=== PATIENT | male | born 1995 | race African-American/Black ===

== ENCOUNTER 2017-08-15 08:55 | Emergency (ER) | payer BC ==
[~2017-08-15] VITALS: Ht 180.3 cm; Wt 86.2 kg
[2017-08-15 09:45] LABS: Basophils # (auto) 0 uL; Eosinophils # (auto) 0.1 uL; Lymphocytes # (auto) 1.9 uL; Mean Corpuscular Hemoglobin 26.3 pg (28.0-32.0); Mean Platelet Volume 8.8 fL (6.9-10.8); Red Cell Distribution Width 13.3 % (11.8-14.3)
[2017-08-15 09:47] LABS: Basophils % (auto) 0.6 % (0.0-2.0); Eosinophils % (auto) 1.4 % (0.0-7.0); Hematocrit 42.6 % (41.0-53.0); Hemoglobin 14.2 g/dL (13.5-17.5); Lymphocytes % (auto) 32.7 % (10.0-50.0); Mean Corpuscular Hgb Conc. 33.3 g/dL (32.0-36.0); Mean Corpuscular Volume 78.9 fL (80.0-100.0); Monocytes # (auto) 0.4 uL; Monocytes % (auto) 7.5 % (0.0-12.0); Neutrophils # (auto) 3.4 uL; Neutrophils % (auto) 57.8 % (37.0-80.0); Nucleated Red Blood Cells % 0.2 %; Platelet Count (auto) 187 10^3/uL (140-450); White Blood Cell 5.9 10^3/uL (4.4-10.8)
[2017-08-15 10:18] LABS: Albumin 4.1 g/dL (3.4-5.0); Alkaline Phosphatase 103 U/L (45-117); Anion Gap 9 (5-15); Aspartate Aminotransferase 16 U/L (15-37); BUN/Creatinine Ratio 11.7; Bilirubin, Total 0.5 mg/dL (0.2-1.0); Blood Urea Nitrogen 13 mg/dL (7-18); Calcium 8.7 mg/dL (8.5-10.1); Carbon Dioxide 27 mmol/L (21-32); Chloride 100 mmol/L (98-107); GFR African American 105 mL/min; GFR Non-African American 87 mL/min; Glucose 209 mg/dL (74-106); Potassium 3.2 mmol/L (3.5-5.1); Sodium 136 mmol/L (136-145); Total Protein 7.7 g/dL (6.4-8.2)
[2017-08-15 13:20] VITALS: BP 126/72
== END 2017-08-15 13:50 | disposition home or self-care (01) ==
LOC: ER 08:55
DX: F41.9 Anxiety disorder, unspecified (principal); F12.10 Cannabis abuse, uncomplicated
CPT/HCPCS: 36415; 71020; 80053; 84484; 85025; 93005